=== PATIENT | female | born 1975 | race Caucasian/White ===

== ENCOUNTER → 2017-03-17 | Outpatient (CLI) | payer OTHER ==
--- NOTE | ~2017-03-17 | US6 ---
[facility] A Service of [facility] & [facility] RADIOLOGY TEXT RESULTS PATIENT: ALYCIA LINN LOCATION: [facility] : 71 UNIT #: [id number] AGE: [address]: Eden Kuhn MD SEX: F ORDER DR: [id number] [facility] [address] [place], [place] [address] [id number] O MR#: [id number] Acc #: [id number] NAME: ALYCIA LINN : 1975 SEX: F STUDY DATE/TIME: 03/17/2017 7:40 UNIT: [facility] ROOM: STUDY DESCRIPTION: US Abdominal Limited Attending Physician: Eden Kuhn M.D. Referring Physician: Eden Kuhn M.D. Ordering Physician: Eden Kuhn M.D. Primary Care Physician: Eden Kuhn M.D. MEDICAL IMAGING REPORT This report is preliminary unless electronic signature is present EXAM Right upper quadrant ultrasound, 03/17/17. HISTORY Abnormally elevated liver enzymes on 03/14/17. Diabetes and hypertension. Cholecystectomy in 2000. FINDINGS The liver demonstrates an increase in echotexture with attenuation of the ultrasound beam characteristic of fatty infiltration. No cystic or solid mass lesions were seen in the liver. The intra and extrahepatic bile ducts are not dilated. The gallbladder IS surgically absent as per patient history. Common duct measures 3 mm. The pancreas and right kidney are normal. IMPRESSION 1. Fatty infiltration of the liver. 2. Surgical absence of the gallbladder. Dictated by... Andreas Richardson M.D. THIS IS AN ELECTRONICALLY VERIFIED REPORT Andreas Richardson M.D. at 03/17/2017 4:33 PM RA/venecia TD: 03/17/2017 12:19 JOB #: [id number] MEDICAL IMAGING REPORT Page 1 of 1 COPY
== END | disposition home or self-care (01) ==
LOC: CGUS 07:21
DX: R79.89 Other specified abnormal findings of blood chemistry (principal); K76.0 Fatty (change of) liver, not elsewhere classified; Z90.49 Acquired absence of other specified parts of digestive tract
CPT/HCPCS: 76705